=== PATIENT | female | born 1960 | race African-American/Black ===

== ENCOUNTER → 2020-06-10 | Outpatient (CLI) | payer BC ==
[~2020-06-10] VITALS: Ht 152.4 cm; Wt 116.1 kg
[~2020-06-10] MED LIST: ACTOS 30 MG TAB30 M1 PO; FARXIGA10 MG PO; FLUZONE QU IM; GLIPIZIDE XL10 MG PO; LISINOPRIL PO; OSPHENA60 MG PO; PNEUMOVAX25 MCG/0.5 IM; PROTONIX40 M2 PO; SIMVASTATIN80 MG PO
--- NOTE | ~2020-06-10 | HPC ---
[facility] [address] [place] [address] PAIN MANAGEMENT CONSULTATION Name: JAHAIRA SALAZAR Ivan Room #: REG CANDIDOJody Moreno#: [id number] Admission: 06/10/20 Attend Phys: Benjamin Perry DO Discharge: Date of : 60 Report #: [id number] CC: Sadia DEL RIO DATE OF SERVICE: 06/10/2020 CHIEF COMPLAINT: Right low back pain. HISTORY OF PRESENT ILLNESS: As you know, the patient is a very pleasant 59-year-old female who began experiencing right low back pain that presented upon arising from bed on 02/14/2020. The patient denied any injury or trauma that may have led to symptom development. She reports no changes in her activity prior to this that may have caused symptoms. She initially thought she had done something to exacerbate her back as she had had previous back symptoms in the past, though this did not resolve spontaneously. She sought evaluation through her primary care team and was advised to trial conservative options. The patient underwent x-ray imaging of the chest, which showed negative findings. She also underwent ultrasound of the kidneys, which again showed normal findings. She has been referred to our service with the presumptive diagnosis of thoracic radiculopathy. The patient indicates today her pain is constant. She describes the pain as throbbing and sharp. She places current pain score 6/10, daily average of 6/10, worst pain has been is 6/10. The patient states her pain is exacerbated with turning to the right, lying on her left side and pressure over the area of the 11th and 12th rib on the right. Pain is improved with heat and cold compresses and the use of Aleve. She has been referred to our service to discuss treatment options for right low back pain. PAST MEDICAL HISTORY: 1. Diabetes mellitus type 2. 2. Hypertension. 3. Gastroesophageal reflux disease. 4. Morbid obesity. PAST SURGICAL HISTORY: 1. Right knee surgery. 2. Left knee surgery. 3. Left elbow surgery. 4. Herniorrhaphy. 5. Cholecystectomy. 6. section x 2. 7. Achilles tendon repair. 8. Rotator cuff repair. SOCIAL HISTORY: The patient denies tobacco, alcohol or IV illicit drug use. She is employed as an administrative services assistant. She is working, not receiving workmen's compensation nor is trying to obtain discrete benefits. She is not in litigation in regards to pain. She is unaccompanied at today's visit. REVIEW OF SYSTEMS: Positive for fatigue and weakness, wearing corrective eyewear, non-insulin dependent diabetes, slow to heal after cuts, chronic right low back pain. All other review of systems negative per 12-point review of systems other than those listed in history of present illness. Pain impact score 40/70 indicating moderate interference of daily activities secondary to pain. ALLERGIES: VICTOZA, VIBERZI AND METFORMIN. CURRENT MEDICATIONS: See chart. IMAGING: X-ray of the chest shows normal findings. PHYSICAL EXAMINATION: VITAL SIGNS: Blood pressure 121/61, pulse 99, respiratory rate 16 and unlabored. The patient is 99% on room air. Height 5 feet tall, weight 256 pounds, BMI calculated 50. GENERAL: Well-developed, well-nourished, well-hydrated, class 3, morbidly obese 59-year-old female, appears her stated age. She is in no acute distress, awake, alert and oriented x 3. Current pain score is rated at about 6/10. HEENT: Normocephalic, atraumatic. Pupils equal, round and reactive to light. Extraocular muscles are intact. NEUROLOGIC: Speech is fluent. The patient deemed an excellent historian. LUNGS: Clear, no wheeze, rhonchi or rales. There is no pain elicited with deep inhalation or forced exhalation. CARDIOVASCULAR: Regular, but distant heart sounds are noted. ABDOMEN: Soft, obese, normoactive bowel sounds. EXTREMITIES: Show no clubbing, no cyanosis. No appreciable edema. MUSCULOSKELETAL: There is palpatory tenderness over the 11th rib approximately 5 cm from the spinous process. Deep palpation in area causes intensification of pain. Forced inhalation and exhalation causes no change in overall pain. Pain is elicited with rotation to the right, but is negative with lateral flexion to the right. Rotation or lateral flexion to the left is negative. Lumbar extension causes no change in overall pain. Lumbar flexion causes no change in overall pain. Lower extremity strength is equal and symmetrical. There are no rashes or lesions overlying the area concerning of herpes zoster. ASSESSMENT: 1. Myofascial pain. 2. Right 11th rib pain. 3. Chronic intractable pain. PLAN: 1. Based on today's physical exam and the history the patient provides, the description the patient uses in regards to the pain as well as the discrete location of symptoms, it would appear the symptoms are related to the 11th rib. There is a possibility there is a slight displacement of the left rib though I could not elicit this with deep inhalation and exhalation, which would be consistent with a possible rib dysfunction. There is a component of symptoms exacerbated with rotation, which may be more related to the paraspinal musculature. I was unable to elicit any radicular component of the patient's symptoms and there is no radicular distribution of pain present today or in her description. I am pleased to advise the patient that the findings of the ultrasound of the kidneys appear normal. The x-ray imaging that was provided also normal, but does not address the area of discomfort. I would recommend that we obtain an x-ray of the area as I am concerned of the 11th rib as the source of her symptoms. There is a possibility that she has had displacement of the 11th rib, which could lead to the symptoms that she is experiencing and can be alleviated quite easily with manipulation. I recommend x-ray imaging of the area initially. The patient is agreeable. 2. The patient will be sent for x-ray imaging of the lower thoracic area. We want the radiologist to concentrate on the area of the 11th rib on the right. This appears to be the source of the patient's symptoms. We will obtain that imaging as quickly as possible and contact the patient once we have the imaging if there are findings concerning. I do feel that there is a strong possibility she has a displaced left rib and this may be the source of her symptoms. We will keep you apprised of the imaging results. 3. The patient is agreeable to begin physical therapy. I believe given the rotational component that she is experiencing and the lack of pain with lateral flexion on that the right side would indicate that there is a significant amount of myofascial discomfort. I believe physical therapy, stretching exercises, core strengthening may be beneficial. We will start the patient on physical therapy twice a week for 6 weeks. She will begin this as quickly as possible. 4. We made no changes in medication management at this time. I believe that treatment in this case should be conservative. Physical therapy, stretching exercises should be beneficial. The patient could also look towards chiropractic manipulation and myofascial release as another treatment course, especially if there is a displaced right 11th rib. The patient will consider this option. At this point, I do not recommend that she seek any adjunctive treatments until we have the x-ray imaging completed. 5. We wish to thank nurse practitioner, Arielle Reddy for the opportunity to see this patient in consultation. We will keep you apprised of response to treatment as we address myofascial symptoms and right 11th rib pain. Again, we wish to thank you for the opportunity to see this patient in consultation. By: [id number] Benjamin Perry DO /nt
[2020-06-10 13:48] VITALS: BP 121/61
--- NOTE | 2020-06-10 14:16 | NUR ---
Pain Clinic Assessment: 1. History of Osteoarthritis: Not Applicable History of Rheumatoid Arthritis: Not Applicable 2. Height: 5 ft. 0 in. 152.4 cm. Weight: 256.0 lb. oz. 116.121 kg. Patient's BMI: 50.0 3. Vital Signs: BP: 121/61 Pulse: 99 Resp: 16 Temp: 02 Sat: 99 ECG Mon: 4. Pain Intensity: 6 5. Fall Risk: Dizziness: N Needs help standing or walking: N Fallen in the last 3 months: N Fall risk comments: 6. Patient on Blood Thinner: None 7. History of Hypertension: Y 8. Opioid Therapy greater than 6 weeks: N Opiate Contract Signed: 9. Risk Assessment Tool Provided: 10. Functional Assessment Tool: 11. Recreational Drug Use: Never Drug Type: Tobacco Use: Former Smoker Tobacco Type: Cigarettes Amount or Packs/day: 1/4 How Many Years: 13 Alcohol Use: No Frequency: Quant:
== END ==
LOC: PAIN 06:57
PROVIDERS: ATTEND Anesthesiology Pain Medicine
DX: M54.5 Low back pain (principal); M79.18 Myalgia, other site; R07.81 Pleurodynia; G89.29 Other chronic pain; Z88.8 Allergy status to other drugs, medicaments and biological substances; Z79.899 Other long term (current) drug therapy